=== PATIENT | female | born 2000 | race Caucasian/White ===

== ENCOUNTER 2022-05-28 12:43 | Outpatient (CLI) | payer OTHER ==
[~2022-05-28 12:43] MED LIST: COLACE 100MG C100 MG PO; IBUPROFEN600 MG PO; LORTAB 5-325 M1 EACH PO; PEPCID20 MG PO; RA PRENATAL TA1 EACH PO; ROBITUSSIN DM UD5 ML GT
== END 2022-05-28 16:31 | disposition home or self-care (01) ==
LOC: GENOP 12:43
DX: O36.8130 Decreased fetal movements, third trimester, not applicable or unspecified (principal); O41.93X0 Disorder of amniotic fluid and membranes, unspecified, third trimester, not applicable or unspecified; O62.9 Abnormality of forces of labor, unspecified; Z3A.37 37 weeks gestation of pregnancy
CPT/HCPCS: 59025; 81001; 83518

== ENCOUNTER 2022-06-07 07:07 | Inpatient (IN) | payer OTHER ==
[~2022-06-07] VITALS: Ht 170.2 cm; Wt 96.6 kg
[2022-06-07 07:50] LABS: HEMOGLOBIN 12.5 gm/dl (12.3-15.3); RED BLOOD COUNT 4.28 M/UL (4.00-5.10); WHITE BLOOD COUNT 10.7 K/UL (4.5-11.0)
[2022-06-08 06:10] LABS: HEMOGLOBIN 12.5 gm/dl (12.3-15.3)
[2022-06-09] MEDS ORDERED: IBUPROFEN600 MG PO (16:26)
[2022-06-09] MEDS ORDERED: DOCUSATE SODIU100 MG PO (16:26)
== END 2022-06-09 16:42 | disposition home or self-care (01) | DRG 807 ==
LOC: GENOP 07:07 → OB 08:05
PROVIDERS: ADMIT Obstetrics & Gynecology
PROC: 10E0XZZ Delivery of Products of Conception, External Approach (ICD-10-PCS; principal; 2022-06-07)
PROC: 10907ZC Drainage of Amniotic Fluid, Therapeutic from Products of Conception, Via Natural or Artificial Opening (ICD-10-PCS; 2022-06-07)
PROC: 3E033VJ Introduction of Other Hormone into Peripheral Vein, Percutaneous Approach (ICD-10-PCS; 2022-06-07)
DX: O80 Encounter for full-term uncomplicated delivery (principal); Z37.0 Single live birth; Z3A.39 39 weeks gestation of pregnancy; Z28.310 Unvaccinated for COVID-19; Z83.3 Family history of diabetes mellitus; Z82.49 Family history of ischemic heart disease and other diseases of the circulatory system; Z90.89 Acquired absence of other organs
CPT/HCPCS: 36415; 81001; 82800; 85014; 85018; 85025; J2590; J3010